=== PATIENT | male | born 1960 | race Caucasian/White ===

== ENCOUNTER 2020-04-22 12:35 | Emergency (ER) | payer OTHER ==
[~2020-04-22] VITALS: Ht 172.7 cm; Wt 74.1 kg
--- NOTE | 2020-04-22 12:35 | NUR ---
PT BIBRA 83 FROM HOME C/O UNABLE TO TALKED AND R FACIAL DROOP STARTED 12NOON, PT IS AAOX2, NOT IN RESPIRATORY DISTRESS, HOOKED TO SUPPORT DBA, KEPT RESTED AND COMFORTABLE, WILL CONTINUE TO MONITOR.
--- NOTE | 2020-04-22 12:38 | NUR ---
BLOOD DRAWN AND SENT TO LAB.
--- NOTE | 2020-04-22 12:40 | NUR ---
SEEN AND EXAMINED BY .
--- NOTE | 2020-04-22 12:41 | NUR ---
CODE STROKE ACTIVATED
--- NOTE | 2020-04-22 12:42 | NUR ---
PT IS WHEELED TO CT SCAN VIA ACLS PROTOCOL.
--- NOTE | 2020-04-22 12:44 | NUR ---
WHEELED OUT PATIENT VIA GURNEY WITH PRINTED CIRCUIT BOARDS PINNER AND NOTCH MACHINE OPERATOR
[2020-04-22 12:50] LABS: BASOPHILS % (AUTO) 0.8 % (0.0-2.0); EOSINOPHILS % (AUTO) 2.2 % (0.0-6.0); HEMATOCRIT 47 % (39-51); HEMOGLOBIN 15.9 g/dL (13.5-17.5); LYMPHOCYTES # (AUTO) 2.1 /CMM (0.8-4.8); MEAN CORPUSCULAR HGB CONC 34 g/dl (31.0-36.0); MEAN CORPUSCULAR VOLUME 101 fL (80-96); MONOCYTES # (AUTO) 0.6 /CMM (0.1-1.30); MONOCYTES % (AUTO) 13.3 % (2.0-12.0); NEUTROPHILS # (AUTO) 1.9 /CMM (1.8-8.9); NEUTROPHILS % (AUTO) 39.7 % (43.0-81.0); PLATELET COUNT (AUTO) 196 /CMM (150-450); RED BLOOD CELL COUNT(AUTO) 4.64 MIL/uL (4.5-6.0); WHITE BLOOD COUNT (AUTO) 4.8 K/uL (4.3-11.0)
--- NOTE | 2020-04-22 12:54 | NUR ---
PATIENT BACK FROM CT SCAN
[2020-04-22 12:56] LABS: CALCIUM, SERUM 8.6 mg/dL (8.5-10.1); CARBON DIOXIDE 27 mmol/L (21-32); CHLORIDE 104 mmol/L (98-107); GLUCOSE 100 mg/dL (74-106); POTASSIUM 3.7 mmol/L (3.5-5.1); SODIUM SERUM 140 mmol/L (136-145); UREA NITROGEN, BLOOD 19 mg/dL (7-18)
[2020-04-22] MEDS ORDERED: IV NS 0.9% 250 ML IV ONE (12:58)
[2020-04-22] MEDS ORDERED: CT SWABBABLE VALVE TRANS SET 1 EA INFUS.SET MC ONE (12:58)
[2020-04-22] MEDS ORDERED: IOHEXOL-350 100 ML VIAL IV ONE (12:58)
[2020-04-22 13:01] LABS: ALANINE AMINOTRANSFERASE 50 U/L (12-78); ALKALINE PHOSPHATASE 93 U/L (46-116); ASPARTATE AMINOTRANSFERASE 23 U/L (15-37); BILIRUBIN,DIRECT 0.2 mg/dL (0.0-0.2); BILIRUBIN,TOTAL 1.1 mg/dL (0.2-1.0); TOTAL PROTEIN, SERUM 7.1 g/dL (6.4-8.2)
--- NOTE | 2020-04-22 13:02 | NUR ---
DR Raine SOTO SPEAKING WITH PATIENT THOUGH TELESTROKE.
--- NOTE | 2020-04-22 13:04 | NUR ---
[facility] called,spoke with [facility] to advise them on a contemplated TPA administration
--- NOTE | 2020-04-22 13:05 | NUR ---
DR BENTON SPEAKING WITH PATIENT'S THROUGH PHONE ABOUT PATIENT RECEIVING TPA.
--- NOTE | 2020-04-22 13:07 | NUR ---
EMILYCJ CRONIN () GAVE CONSENT TO RECEIVE TPA.
--- NOTE | 2020-04-22 13:09 | NUR ---
EMILY CRONIN ([facility]) [phone].
--- NOTE | 2020-04-22 13:09 | NUR ---
PER ASSESSMENT OF NEURO MD Raine SOTO, PATIENT DOES NOT HAVE A DISABLING DISABILITY TO RECEIVE TPA. ER MD WALTERS.
--- NOTE | 2020-04-22 13:11 | NUR ---
TPA ADMINISTRATION CANCELLED BY DR SOTO SINCE HIS DEFICITS DOESN'T APPEAR TO BE "TOO DEBILITATING" DURING NEURO EXAM, DR FORRESTER INFORMED
[2020-04-22 13:14] LABS: CHOLESTEROL 106 mg/dL (<200); HDL CHOLESTEROL 32 mg/dL (40-60); LDL 63 mg/dL (0-99); TRIGLYCERIDES 95 mg/dL (30-150)
--- NOTE | 2020-04-22 13:23 | NUR ---
CALLED NURSING SUP FOR ICU BED.
--- NOTE | 2020-04-22 14:00 | NUR ---
[facility] WANTS TO TRANSPORT PT OUT. WAITING ON TRANSPORTATION INFORMATION.
--- NOTE | 2020-04-22 14:30 | NUR ---
PT ASLEEP, EASILY AWAKEN BY VERBAL STIMULI. AAOX4, SPEAKING FLUENTLY, STS " I FEEL MUCH BETTER AFTER WAKING UP ". RT LOWER LIP IS TWITCHING & STS " ITS NORMAL ME FOR MANY YEARS NOW ". 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 WILL CONT TO MONITOR.
--- NOTE | 2020-04-22 16:35 | NUR ---
PT AAOX4, SPEAKING ON PHONE WITH . DENIES H[place], DIZZINESS, WEAKNESS, VISUAL CHANGES, NO ARM/LEG DRIFTING. PT ABLE TO A CUP OF WATER WITH NO DIFFICULTY. PT'S HUNGRY & OK'D BY DR. DESOUZA TO FEED PT. ORDERED FOOD FROM [facility]ITCH[employer].
--- NOTE | 2020-04-22 17:28 | NUR ---
FOLLOWED UP WITH [facility] ON TRANSFER STATUS. AT THE MOMENT THEY ARE STILL WAITING FOR BED ASSIGNMENT BUT WILL CALL BACK ONCE THEY HAVE ALL TRANSFER INFORMATION AVAILABLE.
--- NOTE | 2020-04-22 17:30 | NUR ---
PT EATING A MEAL WITHOUT DIFFICULTY, BREE WELL.
--- NOTE | 2020-04-22 17:40 | NUR ---
GOT A CALL FROM [facility]. PT WILL BE GOING TO [facility] ROOM 7785. NUMBER FOR REPORT. [phone]. DR. Hellen GORDON IS THE ACCEPTING. 1899 ETA FOR [facility]. GIVE REPORT AROUND [phone] BECAUSE THERE IS CURRENTLY A PT IN THAT ROOM.
[2020-04-22 19:38] VITALS: BP 138/74
--- NOTE | 2020-04-22 19:38 | NUR ---
TRANSPORT AT BEDSIDE REPORT GIVEN TO [facility].
--- NOTE | 2020-04-22 19:57 | NUR ---
REPORT GIVEN TO MUNA ESTRADA.
== END 2020-04-22 20:00 | disposition short-term general hospital (02) ==
LOC: ER 12:38
DX: G45.9 Transient cerebral ischemic attack, unspecified (principal); R94.31 Abnormal electrocardiogram [ECG] [EKG]
CPT/HCPCS: 36415; 70450; 70496; 70498; 71045; 80048; 80061; 80076; 84484; 85025; 85730; 93005; 99291; J7030; J7050; Q9967; 87081-TC